=== PATIENT | female | born 1940 | race Caucasian/White ===

== ENCOUNTER 2020-07-05 22:57 | Emergency (ER) | payer MEDICARE ==
[~2020-07-05] VITALS: Ht 167.6 cm; Wt 70.0 kg
[2020-07-05] MEDS ORDERED: methylPREDNISolone sod succ 125mg/2ml vial IV ONE (23:10)
[2020-07-05] MEDS ORDERED: ipratropium/albuterol 3ml nebule NEB ONE (23:10)
[2020-07-05] MEDS ORDERED: CefTRIAXone 2gm/D5W 50ml BAG 50 ML IV ONE (23:10)
[2020-07-05 23:36] LABS: BASOPHILS % (AUTO) 0.7 % (0-1); EOSINOPHILS # (AUTO) 0.1 X10'3 (0-0.9); EOSINOPHILS % (AUTO) 1.7 % (0-6); HEMATOCRIT 43.6 % (35.0-45.0); HEMOGLOBIN 14.5 g/dl (12.0-16.0); LYMPHOCYTES # (AUTO) 0.8 X10'3 (1.1-4.8); LYMPHOCYTES % (AUTO) 16.1 % (21-51); MEAN CORPUSCULAR HEMOGLOBIN 35.8 PG (27.0-31.0); MEAN CORPUSCULAR HGB CONC 33.3 g/dL (33.0-36.5); MEAN CORPUSCULAR VOLUME 107.5 FL (78-98); MEAN PLATELET VOLUME 8.7 FL (7.4-10.4); MONOCYTES # (AUTO) 0.5 X10'3 (0-0.9); MONOCYTES % (AUTO) 10.5 % (2-12); NEUTROPHILS # (AUTO) 3.6 X10'3 (1.8-7.7); PLATELET COUNT 177 X10'3 (140-440); RED BLOOD COUNT 4.05 X10'6 (4.20-5.60); RED CELL DISTRIBUTION WIDTH 14.5 % (11.5-14.5); WHITE BLOOD COUNT 5.1 X10'3 (4.5-11.0)
[2020-07-05 23:47] LABS: ALANINE AMINOTRANSFERASE 18 U/L (12-78); ALBUMIN 3.1 G/DL (3.4-5.0); ALBUMIN/GLOBULIN RATIO 0.7 (1.1-1.5); ALKALINE PHOSPHATASE 86 IU/L (46-116); ANION GAP 9 (8-16); ASPARTATE AMINO TRANSFERASE 19 U/L (10-37); BILIRUBIN,TOTAL 0.4 MG/DL (0.1-1.0); BLOOD UREA NITROGEN 12 MG/DL (7-18); CALCIUM 8.6 MG/DL (8.5-10.1); CHLORIDE 108 MMOL/L (99-107); CREATININE 0.86 MG/DL (0.40-0.90); POTASSIUM 3.7 MMOL/L (3.5-5.1); SODIUM 144 MMOL/L (135-145); TOTAL CARBON DIOXIDE 26.6 MMOL/L (24-32); TOTAL PROTEIN 7.8 G/DL (6.4-8.2); eGFR 64 ML/MIN
[2020-07-06 00:01] VITALS: BP 121/84
[2020-07-06 00:01] LABS: C-REACTIVE PROTEIN 0.65 MG/DL (0.0-0.5); FERRITIN 226 NG/ML (8-252); LACTATE DEHYDROGENASE 180 U/L (81-234)
[2020-07-06 00:05] LABS: GLUCOSE 90 MG/DL (70-104)
[2020-07-06 00:07] LABS: PARTIAL THROMBOPLASTIN TIME 28 SECONDS (22-32)
[2020-07-06 00:31] LABS: D-DIMER 2.74 MG/L FEU (0-0.50)
[2020-07-06] MEDS ORDERED: iohexol 350MG/ML 100ml bottle IV ONE (00:55)
== END 2020-07-06 02:23 | disposition home or self-care (01) ==
LOC: ER 22:58
DX: J18.9 Pneumonia, unspecified organism (principal); Z20.828 Contact with and (suspected) exposure to other viral communicable diseases; J44.1 Chronic obstructive pulmonary disease with (acute) exacerbation; Q25.49 Other congenital malformations of aorta; R05 Cough; R06.02 Shortness of breath; R06.2 Wheezing; I48.91 Unspecified atrial fibrillation; F17.200 Nicotine dependence, unspecified, uncomplicated; Z88.2 Allergy status to sulfonamides
CPT/HCPCS: 36415; 71045; 71275; 80053; 82728; 83605; 83615; 83880; 84145; 84484; 85025; 85379; 85384; 85610; 85730; 86140; 87040; 87635; 93005; 94640; 96365; 96375; 99285; C9803; J0696; J2930; Q9967; 94760

== ENCOUNTER 2020-07-07 15:38 | Observation (INO) | payer MEDICARE ==
[~2020-07-07] VITALS: Ht 167.6 cm; Wt 65.0 kg
[2020-07-07 17:36] LABS: BASOPHILS % (AUTO) 0.3 % (0-1); EOSINOPHILS % (AUTO) 0.4 % (0-6); HEMATOCRIT 43.3 % (35.0-45.0); HEMOGLOBIN 14.4 g/dl (12.0-16.0); LYMPHOCYTES # (AUTO) 0.7 X10'3 (1.1-4.8); LYMPHOCYTES % (AUTO) 5.5 % (21-51); MEAN CORPUSCULAR HEMOGLOBIN 35.6 PG (27.0-31.0); MEAN CORPUSCULAR HGB CONC 33.2 g/dL (33.0-36.5); MEAN CORPUSCULAR VOLUME 107.2 FL (78-98); MEAN PLATELET VOLUME 9.1 FL (7.4-10.4); MONOCYTES # (AUTO) 0.9 X10'3 (0-0.9); NEUTROPHILS # (AUTO) 10.8 X10'3 (1.8-7.7); NEUTROPHILS % (AUTO) 86.8 % (42-75); PLATELET COUNT 162 X10'3 (140-440); RED BLOOD COUNT 4.04 X10'6 (4.20-5.60); RED CELL DISTRIBUTION WIDTH 14.3 % (11.5-14.5); WHITE BLOOD COUNT 12.4 X10'3 (4.5-11.0)
[2020-07-07 18:47] LABS: ALANINE AMINOTRANSFERASE 18 U/L (12-78); ALBUMIN 3.1 G/DL (3.4-5.0); ALBUMIN/GLOBULIN RATIO 0.7 (1.1-1.5); ALKALINE PHOSPHATASE 74 IU/L (46-116); ANION GAP 9 (8-16); ASPARTATE AMINO TRANSFERASE 22 U/L (10-37); BILIRUBIN,TOTAL 0.9 MG/DL (0.1-1.0); BLOOD UREA NITROGEN 11 MG/DL (7-18); BUN/CREATININE RATIO 14.5 (6.6-38.0); CALCIUM 8.8 MG/DL (8.5-10.1); CHLORIDE 108 MMOL/L (99-107); CREATININE 0.76 MG/DL (0.40-0.90); GLUCOSE 91 MG/DL (70-104); POTASSIUM 4.5 MMOL/L (3.5-5.1); SODIUM 143 MMOL/L (135-145); TOTAL CARBON DIOXIDE 25.9 MMOL/L (24-32); TOTAL PROTEIN 7.6 G/DL (6.4-8.2); eGFR 74 ML/MIN
[2020-07-07] MEDS ORDERED: iohexol 350MG/ML 100ml bottle IV ONE (19:07)
[2020-07-07] MEDS ORDERED: acetaminophen 325mg tablet PO ONE (20:35)
[2020-07-07] MEDS ORDERED: magnesium hydroxide 30ml (MOM) UD suspension PO PRN (20:40)
[2020-07-07] MEDS ORDERED: potassium Cl 40MEQ/1/2NS 520ml 520 ML IV PRN ×2 (20:40)
[2020-07-07] MEDS ORDERED: ondansetron/PF 4mg/2ml inj IV PRN (20:40)
[2020-07-07] MEDS ORDERED: morphine 2 MG/ML inj. syringe IV PRN (20:40)
[2020-07-07] MEDS ORDERED: magnesium Cl slow-release 64mg tablet PO PRN (20:40)
[2020-07-07] MEDS ORDERED: mag hydrox/Alum hydrox/simeth 30ml oral suspension PO PRN (20:40)
[2020-07-07] MEDS ORDERED: potassium Cl 20 mEq SR tablet PO PRN (20:40)
[2020-07-07] MEDS ORDERED: magnesium 4gm in 100ml NS 100 ML IV PRN (20:40)
[2020-07-07] MEDS ORDERED: acetaminophen 325mg tablet PO PRN (20:40)
[2020-07-07] MEDS ORDERED: magnesium 2GM in 50ml NS 50 ML IV PRN (20:40)
[2020-07-07 22:30] VITALS: BP 143/88
[2020-07-08 02:00] VITALS: BP 131/75
[2020-07-08 05:52] LABS: BASOPHILS % (AUTO) 0.6 % (0-1); EOSINOPHILS # (AUTO) 0.1 X10'3 (0-0.9); EOSINOPHILS % (AUTO) 1.5 % (0-6); HEMATOCRIT 40.1 % (35.0-45.0); HEMOGLOBIN 13.3 g/dl (12.0-16.0); LYMPHOCYTES % (AUTO) 15.3 % (21-51); MEAN CORPUSCULAR HEMOGLOBIN 35.7 PG (27.0-31.0); MEAN CORPUSCULAR HGB CONC 33.3 g/dL (33.0-36.5); MEAN CORPUSCULAR VOLUME 107.2 FL (78-98); MEAN PLATELET VOLUME 9.2 FL (7.4-10.4); MONOCYTES # (AUTO) 0.6 X10'3 (0-0.9); MONOCYTES % (AUTO) 9.5 % (2-12); NEUTROPHILS # (AUTO) 4.7 X10'3 (1.8-7.7); NEUTROPHILS % (AUTO) 73.1 % (42-75); PLATELET COUNT 158 X10'3 (140-440); RED BLOOD COUNT 3.74 X10'6 (4.20-5.60); RED CELL DISTRIBUTION WIDTH 14.6 % (11.5-14.5); WHITE BLOOD COUNT 6.5 X10'3 (4.5-11.0)
[2020-07-08 06:02] LABS: ALANINE AMINOTRANSFERASE 15 U/L (12-78); ALBUMIN 2.6 G/DL (3.4-5.0); ALBUMIN/GLOBULIN RATIO 0.7 (1.1-1.5); ALKALINE PHOSPHATASE 65 IU/L (46-116); ANION GAP 7 (8-16); ASPARTATE AMINO TRANSFERASE 17 U/L (10-37); BILIRUBIN,TOTAL 0.8 MG/DL (0.1-1.0); BLOOD UREA NITROGEN 15 MG/DL (7-18); CALCIUM 8.4 MG/DL (8.5-10.1); CHLORIDE 110 MMOL/L (99-107); CREATININE 0.75 MG/DL (0.40-0.90); POTASSIUM 3.8 MMOL/L (3.5-5.1); SODIUM 143 MMOL/L (135-145); TOTAL CARBON DIOXIDE 26.2 MMOL/L (24-32); TOTAL PROTEIN 6.5 G/DL (6.4-8.2); eGFR 75 ML/MIN
[2020-07-08 06:06] LABS: GLUCOSE 94 MG/DL (70-104)
--- NOTE | 2020-07-08 06:07 | NUR ---
Problems reprioritized. Patient report given, questions answered & plan of care reviewed with Mary Ellen VILLELA.
--- NOTE | 2020-07-08 06:15 | NUR ---
Patient in room PCU 3027. I have received report from José Miguel VILLELA and had the opportunity to ask questions and assume patient care.
[2020-07-08 07:00] VITALS: BP 136/77
--- NOTE | 2020-07-08 07:37 | NUR ---
Paged Rt Re: Eveline Paula RM [id number] pt requesting breathing tx. Thank you Mary Ellen VILLELA [id number]
[2020-07-08] MEDS: predniSONE 20 mg tablet PO SCH (07:40)
[2020-07-08] MEDS: furosemide 40mg/4ml inj IV SCH ×2 (07:41→20:00)
[2020-07-08] MEDS: HYDROcodone/acetaminophen 5mg/325mg tablet PO PRN (07:45)
[2020-07-08] MEDS ORDERED: BUME1TAB8 PO (07:49)
[2020-07-08] MEDS ORDERED: PANT-47 PO (07:49)
[2020-07-08] MEDS ORDERED: LISI2.5T2 PO (07:49)
[2020-07-08] MEDS ORDERED: CARV3.122 PO (07:49)
[2020-07-08] MEDS: K and/or MAG REPLACEMENT MC SCH ×2 (08:00→19:21)
[2020-07-08] MEDS ORDERED: metoprolol tartrate 1mg/ml inj IV PRN (10:10)
[2020-07-08] MEDS ORDERED: regadenoson 0.4mg/5ml syringe IV PRN (10:10)
[2020-07-08] MEDS ORDERED: nitroGLYCERIN 0.4mg SUBLingual tab SL PRN (10:10)
[2020-07-08] MEDS ORDERED: aminophylline 250mg/10ml inj. IV PRN (10:10)
[2020-07-08] MEDS ORDERED: aspirin 325mg tablet PO ONE (10:15)
[2020-07-08] MEDS: lisinopril 2.5mg tablet PO SCH (10:45)
[2020-07-08 11:00] VITALS: BP 122/77
--- NOTE | 2020-07-08 11:21 | NUR ---
Dr. Hoyos at bedside with patient and nurse. New order to add sputum gm and culture, PT eval and treat, and Nystatin in panus area. Will continue to monitor.
--- NOTE | 2020-07-08 18:18 | NUR ---
Problems reprioritized. Patient report given, questions answered & plan of care reviewed with Sai VILLELA.
[2020-07-08 19:16] VITALS: BP 125/81
[2020-07-08] MEDS: carVEDilol 3.125mg tablet PO SCH (20:00)
[2020-07-08] MEDS: nystatin 15 GM powder TP SCH (20:24)
[2020-07-08 22:00] VITALS: BP 115/68
[2020-07-09] VITALS (12 sets, daily range): BP systolic 119–149; BP diastolic 66–86
[2020-07-09] MEDS: HYDROcodone/acetaminophen 5mg/325mg tablet PO PRN ×3 (00:37→11:33)
--- NOTE | 2020-07-09 06:24 | NUR ---
Patient in room PCU 3015. I have received report from MANOHAR Knott and had the opportunity to ask questions and assume patient care.
[2020-07-09 06:26] LABS: BASOPHILS % (AUTO) 0.7 % (0-1); EOSINOPHILS # (AUTO) 0.1 X10'3 (0-0.9); EOSINOPHILS % (AUTO) 1.1 % (0-6); HEMATOCRIT 40.4 % (35.0-45.0); HEMOGLOBIN 13.6 g/dl (12.0-16.0); LYMPHOCYTES # (AUTO) 1.6 X10'3 (1.1-4.8); LYMPHOCYTES % (AUTO) 23.4 % (21-51); MEAN CORPUSCULAR HEMOGLOBIN 36.4 PG (27.0-31.0); MEAN CORPUSCULAR HGB CONC 33.6 g/dL (33.0-36.5); MEAN CORPUSCULAR VOLUME 108.3 FL (78-98); MEAN PLATELET VOLUME 9.5 FL (7.4-10.4); MONOCYTES # (AUTO) 0.8 X10'3 (0-0.9); MONOCYTES % (AUTO) 11.7 % (2-12); NEUTROPHILS # (AUTO) 4.4 X10'3 (1.8-7.7); NEUTROPHILS % (AUTO) 63.1 % (42-75); PLATELET COUNT 162 X10'3 (140-440); RED BLOOD COUNT 3.73 X10'6 (4.20-5.60); RED CELL DISTRIBUTION WIDTH 14.4 % (11.5-14.5)
[2020-07-09 06:53] LABS: ALANINE AMINOTRANSFERASE 14 U/L (12-78); ALBUMIN 2.6 G/DL (3.4-5.0); ALBUMIN/GLOBULIN RATIO 0.7 (1.1-1.5); ALKALINE PHOSPHATASE 63 IU/L (46-116); ANION GAP 8 (8-16); ASPARTATE AMINO TRANSFERASE 14 U/L (10-37); BILIRUBIN,TOTAL 0.5 MG/DL (0.1-1.0); BLOOD UREA NITROGEN 22 MG/DL (7-18); BUN/CREATININE RATIO 26.2 (6.6-38.0); CALCIUM 8.1 MG/DL (8.5-10.1); CHLORIDE 107 MMOL/L (99-107); CREATININE 0.84 MG/DL (0.40-0.90); GLUCOSE 93 MG/DL (70-104); POTASSIUM 3.4 MMOL/L (3.5-5.1); SODIUM 141 MMOL/L (135-145); TOTAL CARBON DIOXIDE 26.4 MMOL/L (24-32); TOTAL PROTEIN 6.4 G/DL (6.4-8.2); eGFR 66 ML/MIN
[2020-07-09] MEDS: predniSONE 20 mg tablet PO SCH (07:14)
[2020-07-09] MEDS: potassium Cl 20 mEq SR tablet PO PRN ×3 (07:14→17:09)
[2020-07-09] MEDS: nystatin 15 GM powder TP SCH (07:14)
[2020-07-09] MEDS: furosemide 40mg/4ml inj IV SCH (07:21)
[2020-07-09] MEDS: lisinopril 2.5mg tablet PO SCH (07:21)
[2020-07-09] MEDS: carVEDilol 3.125mg tablet PO SCH (07:21)
[2020-07-09] MEDS: K and/or MAG REPLACEMENT MC SCH (07:22)
--- NOTE | 2020-07-09 07:24 | NUR ---
[facility] med tech in at patients bedside.
[2020-07-09] MEDS ORDERED: pantoprazole 40mg Tablet.DR PO SCH (08:00)
--- NOTE | 2020-07-09 08:24 | NUR ---
Patient down to [facility].
[2020-07-09] MEDS ORDERED: aspirin 81mg tablet.DR PO SCH (08:30)
--- NOTE | 2020-07-09 10:35 | NUR ---
Patient back to room 3015A. No longer NPO per [facility] and will have another scan later today. Patient has coffee in hand and is requesting a meal. [place] offered and accepted by patient.
--- NOTE | 2020-07-09 12:07 | NUR ---
Patient back down to [facility]
--- NOTE | 2020-07-09 13:56 | NUR ---
Patient in street clothing ( [place] sweat pants and sweater) with her walker and stated she was going for a walk. Educated patient that she is to remain on the unit as she has a tele monitor on, IV and for her safety. Patient states, "this is not a fdc I just need to get some fresh air real quick." Again educated patient she is free to ambulate the unit but she should remain on the unit. Patient ambulated around unit and was then seen nearby the A elevators asking environmental services staff directions to go outside. Reminded patient to stay on unit and this nurse will find a PCT to escort patient for walk on unit. Patient agreed. This nurse went to speak to PCT and returned to find patient not nearby elevators anymore. Called down to security and spoke to [place] [facility] front office assistant security. Description of patient given to security. CHAPITO Tovar who was escorting another patient down to [facility] for [facility] agreed she would escort patient back to unit if patient seen in [facility].
--- NOTE | 2020-07-09 14:34 | NUR ---
Patient found in ambulance bay smoking a cigarette. Educated patient non smoking facility. Patients states, "it's my given right that I can go walking and get sunshine and do my routine. That is why I'm so unhappy and grumpy" and scoffed. Patient escorted back up to room 3015a in chair with call light in reach. Will continue to monitor.
--- NOTE | 2020-07-09 16:31 | NUR ---
Patient up and ambulating the floor anxious about going home. Let patient know that Dr. Hoyos is awaiting final results of her derik scan from outside radiologist as he is unsure of the results at this time. Patient states she understands. Patient ambulating the floor frequently and reminded several times to put on surgical face mask due to new covid policies. Patient also seen standing at charge, RN desk "hovering over food tray" so PCT asked her to not do that. Patient then yelled at PCT per Charge, Lilly. Dr Hoyos called to floor and notified of patient leaving floor and also for yelling episode.
--- NOTE | 2020-07-09 16:35 | NUR ---
Received another call from Dr. Hoyos that patient will be DC.
[2020-07-09] MEDS ORDERED: NITR0.4T51 SL (16:36)
[2020-07-09] MEDS ORDERED: SPIR25TA5 PO (16:36)
[2020-07-09] MEDS ORDERED: LISI-600 PO (16:36)
[2020-07-09] MEDS ORDERED: ASPI-1071 PO (16:36)
[2020-07-09] MEDS ORDERED: ALBU8.5H8 INH (16:39)
[2020-07-09] MEDS ORDERED: BUDE10.22 INH (16:39)
[2020-07-09] MEDS ORDERED: PRED10TA23 PO (16:39)
--- NOTE | 2020-07-09 17:23 | NUR ---
Discussed with patient discharge instructions and new prescriptions. Patient verbalizes understanding of teaching and has no questions. Patient belongings packed in belongings bag and ready for dc. Patient waiting for her son to arrive to transport her home.
--- NOTE | 2020-07-09 17:34 | NUR ---
Patient alert and oriented in no apparent distress and with no complaints. Patient dc'd with all personal belongings including home meds that were stored in pharmacy, escorted out in wheelchair.
== END 2020-07-09 17:40 | disposition home or self-care (01) ==
LOC: ER 15:38 → ED HOLD 20:37 → PCU 3S 22:37
PROVIDERS: ADMIT Family Medicine; ATTEND Family Medicine
DX: R07.89 Other chest pain (principal); I11.0 Hypertensive heart disease with heart failure; I50.9 Heart failure, unspecified; J44.1 Chronic obstructive pulmonary disease with (acute) exacerbation; I71.4 Abdominal aortic aneurysm, without rupture; I48.0 Paroxysmal atrial fibrillation; I25.2 Old myocardial infarction; F17.200 Nicotine dependence, unspecified, uncomplicated; Z79.82 Long term (current) use of aspirin; Z79.899 Other long term (current) drug therapy
CPT/HCPCS: 36415; 71045; 71275; 78452; 80053; 83735; 83880; 84145; 84484; 85025; 87070; 87081; 93017; 93306; 96374; 97161; 97530; 99285; A9500; G0378; J1940; J2785; J7512; Q9967; 93005

== ENCOUNTER 2020-09-28 18:11 | Emergency (ER) | payer MEDICARE ==
[~2020-09-28] VITALS: Ht 167.6 cm; Wt 70.5 kg
[~2020-09-28 18:11] MED LIST: ASCO-100 PO; ASPI-611 PO; BUME1TAB8 PO; CARV3.122 PO; PANT-47 PO; VITA-268 PO
[2020-09-28 19:48] LABS: BASOPHILS # (AUTO) 0.1 X10'3 (0-0.2); BASOPHILS % (AUTO) 1.5 % (0-1); EOSINOPHILS # (AUTO) 0.6 X10'3 (0-0.9); EOSINOPHILS % (AUTO) 10.8 % (0-6); HEMATOCRIT 42.6 % (35.0-45.0); HEMOGLOBIN 14.2 g/dl (12.0-16.0); LYMPHOCYTES # (AUTO) 1.4 X10'3 (1.1-4.8); LYMPHOCYTES % (AUTO) 25.8 % (21-51); MEAN CORPUSCULAR HEMOGLOBIN 34.8 PG (27.0-31.0); MEAN CORPUSCULAR HGB CONC 33.3 g/dL (33.0-36.5); MEAN CORPUSCULAR VOLUME 104.6 FL (78-98); MEAN PLATELET VOLUME 8.9 FL (7.4-10.4); MONOCYTES # (AUTO) 0.7 X10'3 (0-0.9); MONOCYTES % (AUTO) 12.7 % (2-12); NEUTROPHILS # (AUTO) 2.6 X10'3 (1.8-7.7); NEUTROPHILS % (AUTO) 49.2 % (42-75); PLATELET COUNT 165 X10'3 (140-440); RED BLOOD COUNT 4.07 X10'6 (4.20-5.60); RED CELL DISTRIBUTION WIDTH 13.9 % (11.5-14.5); WHITE BLOOD COUNT 5.2 X10'3 (4.5-11.0)
[2020-09-28 20:06] LABS: ALANINE AMINOTRANSFERASE 23 U/L (12-78); ALBUMIN 3.1 G/DL (3.4-5.0); ALBUMIN/GLOBULIN RATIO 0.7 (1.1-1.5); ALKALINE PHOSPHATASE 73 IU/L (46-116); AMYLASE 56 U/L (25-115); ANION GAP 9 (8-16); ASPARTATE AMINO TRANSFERASE 30 U/L (10-37); BILIRUBIN,TOTAL 0.7 MG/DL (0.1-1.0); BLOOD UREA NITROGEN 9 MG/DL (7-18); BUN/CREATININE RATIO 12.5 (6.6-38.0); CALCIUM 9.1 MG/DL (8.5-10.1); CHLORIDE 107 MMOL/L (99-107); CREATININE 0.72 MG/DL (0.40-0.90); GLUCOSE 93 MG/DL (70-104); LIPASE 81 U/L (73-393); SODIUM 142 MMOL/L (135-145); TOTAL PROTEIN 7.6 G/DL (6.4-8.2); eGFR 78 ML/MIN
[2020-09-28 20:07] LABS: POTASSIUM 3.8 MMOL/L (3.5-5.1)
[2020-09-28 20:32] LABS: CLARITY,URINE SLIGHTLY CLOUDY (Clear); COLOR,URINE YELLOW (Yellow); GLUCOSE, URINE NEGATIVE (Neg); KETONES,URINE NEGATIVE (Neg); LEUKOCYTE ESTERASE ,URINE SMALL (Neg); NITRITES, URINE NEGATIVE (Neg); OCCULT BLOOD,URINE TRACE-INTACT (Neg); PH,URINE 7.5 (4.8-8.0); PROTEIN,URINE NEGATIVE (Neg)
[2020-09-28 20:34] LABS: UA COLLECTION TYPE CLN CATCH MIDSTREAM
[2020-09-28 20:42] LABS: SQUAMOUS EPITHELIAL CELL,UR MANY /LPF (FEW)
[2020-09-28 20:43] LABS: BACTERIA,URINE 2+ /HPF (Neg); RBC,URINE 0-2 /HPF (0-2)
[2020-09-28 22:55] VITALS: BP 165/95
== END 2020-09-28 23:03 | disposition home or self-care (01) ==
LOC: ER 18:12
DX: R07.89 Other chest pain (principal); R10.84 Generalized abdominal pain; I48.91 Unspecified atrial fibrillation; J44.9 Chronic obstructive pulmonary disease, unspecified; Z90.710 Acquired absence of both cervix and uterus; Z98.890 Other specified postprocedural states; Z88.2 Allergy status to sulfonamides; Z79.82 Long term (current) use of aspirin; Z79.899 Other long term (current) drug therapy
CPT/HCPCS: 36415; 74176; 80053; 81001; 82150; 83690; 84484; 85025; 93005; 99285

== ENCOUNTER 2021-07-14 12:49 | Emergency (ER) | payer MEDICARE ==
[~2021-07-14] VITALS: Ht 167.6 cm; Wt 63.0 kg
[2021-07-14 15:02] VITALS: BP 158/66
--- NOTE | 2021-07-14 20:13 | NUR ---
PT LEFT DUE TO WAIT TIMES
== END 2021-07-14 20:14 | disposition left against medical advice (07) ==
LOC: ER 12:51
DX: M79.662 Pain in left lower leg (principal); R22.42 Localized swelling, mass and lump, left lower limb; I48.91 Unspecified atrial fibrillation; J44.9 Chronic obstructive pulmonary disease, unspecified; Z98.890 Other specified postprocedural states; Z88.2 Allergy status to sulfonamides; Z79.82 Long term (current) use of aspirin; Z79.899 Other long term (current) drug therapy
CPT/HCPCS: 93926; 93971; 99284

== ENCOUNTER 2021-09-14 05:52 | Emergency (ER) | payer MEDICARE ==
[~2021-09-14] VITALS: Ht 167.6 cm; Wt 65.9 kg
--- NOTE | 2021-09-14 06:30 | NUR ---
DR. JACOBS AT BEDSIDE
[2021-09-14 07:28] LABS: BASOPHILS % (AUTO) 1.1 % (0-1); EOSINOPHILS # (AUTO) 0.2 X10'3 (0-0.9); EOSINOPHILS % (AUTO) 4.7 % (0-6); HEMOGLOBIN 13.9 g/dl (12.0-16.0); LYMPHOCYTES # (AUTO) 0.8 X10'3 (1.1-4.8); LYMPHOCYTES % (AUTO) 22.4 % (21-51); MEAN CORPUSCULAR HEMOGLOBIN 33.9 PG (27.0-31.0); MEAN CORPUSCULAR HGB CONC 33.1 g/dL (33.0-36.5); MEAN CORPUSCULAR VOLUME 102.4 FL (78-98); MEAN PLATELET VOLUME 8.1 FL (7.4-10.4); MONOCYTES # (AUTO) 0.4 X10'3 (0-0.9); MONOCYTES % (AUTO) 9.9 % (2-12); NEUTROPHILS # (AUTO) 2.3 X10'3 (1.8-7.7); NEUTROPHILS % (AUTO) 61.9 % (42-75); PLATELET COUNT 179 X10'3 (140-440); RED CELL DISTRIBUTION WIDTH 13.8 % (11.5-14.5); WHITE BLOOD COUNT 3.8 X10'3 (4.5-11.0)
[2021-09-14 07:43] LABS: ALANINE AMINOTRANSFERASE 18 U/L (12-78); ALBUMIN 3.3 G/DL (3.4-5.0); ALBUMIN/GLOBULIN RATIO 0.8 (1.1-1.5); ALKALINE PHOSPHATASE 65 IU/L (46-116); ANION GAP 12 (8-16); ASPARTATE AMINO TRANSFERASE 17 U/L (10-37); BILIRUBIN,TOTAL 0.4 MG/DL (0.1-1.0); BLOOD UREA NITROGEN 10 MG/DL (7-18); BUN/CREATININE RATIO 15.6 (6.6-38.0); CALCIUM 8.7 MG/DL (8.5-10.1); CHLORIDE 109 MMOL/L (99-107); CREATININE 0.64 MG/DL (0.40-0.90); POTASSIUM 3.6 MMOL/L (3.5-5.1); SODIUM 149 MMOL/L (135-145); TOTAL PROTEIN 7.5 G/DL (6.4-8.2); eGFR 90 ML/MIN
[2021-09-14 07:48] LABS: GLUCOSE 77 MG/DL (70-104)
[2021-09-14 09:49] VITALS: BP 149/78
--- NOTE | 2021-09-14 09:50 | NUR ---
PT SLEEPING QUIETLY AT THIS TIME.
[2021-09-14 10:58] LABS: CLARITY,URINE CLEAR (Clear); GLUCOSE, URINE NEGATIVE (Neg); KETONES,URINE NEGATIVE (Neg); LEUKOCYTE ESTERASE ,URINE NEGATIVE (Neg); NITRITES, URINE NEGATIVE (Neg); OCCULT BLOOD,URINE TRACE-INTACT (Neg); PROTEIN,URINE NEGATIVE (Neg); UROBILINOGEN,URINE 0.2 E.U/dL (0.2-1.0)
[2021-09-14 11:00] LABS: COLOR,URINE STRAW (Yellow); UA COLLECTION TYPE CLN CATCH MIDSTREAM
[2021-09-14 11:04] LABS: MUCUS STRANDS FEW /LPF (Neg); SQUAMOUS EPITHELIAL CELL,UR FEW /LPF (FEW)
[2021-09-14 11:05] LABS: BACTERIA,URINE FEW /HPF (Neg); RBC,URINE 0-2 /HPF (0-2); WBC,URINE 0-4 /HPF (0-4)
== END 2021-09-14 12:14 | disposition home or self-care (01) ==
LOC: ER 05:52
DX: M54.59 Other low back pain (principal); R41.82 Altered mental status, unspecified; I11.0 Hypertensive heart disease with heart failure; J44.1 Chronic obstructive pulmonary disease with (acute) exacerbation; E78.00 Pure hypercholesterolemia, unspecified; Z88.2 Allergy status to sulfonamides; Z79.899 Other long term (current) drug therapy; W19.XXXA Unspecified fall, initial encounter; Y93.89 Activity, other specified; Y92.89 Other specified places as the place of occurrence of the external cause; Y99.8 Other external cause status
CPT/HCPCS: 36415; 70450; 71045; 72100; 73502; 80053; 81001; 83605; 85025; 87040; 93005; 99285